=== PATIENT | female | born 1985 | race Caucasian/White ===

== ENCOUNTER 2023-07-15 21:24 | Emergency (ER) | payer OTHER ==
[~2023-07-15] VITALS: Ht 175.3 cm; Wt 63.5 kg
[~2023-07-15 21:24] MED LIST: ALBU90OI INH; ALBU90OI61 INH; AMOCLA875 PO; AMOX500 PO; AMOX875 PO; AMPDEX10 PO; ARIP10 PO; BACL10 PO; BUSP10 PO; CITA20; CITA20 PO; CLON1 PO; Cleocin HCl150 MG PO; Cleocin HCl300 MG PO; DOXY100T53 PO; FAMO20 PO; FLUC150A PO; Flagyl500 MG PO; GABA300; HYDACE5 PO; IBUP600 PO; IBUP800 PO; KETO10 PO; LEVFLO500 PO; LORA.5 PO; MEDR150I; METR500 PO; MULVITMINE PO; Norco 5-325 Ta1 EACH PO; ONDA4ODT MM; Omeprazole20 M1; PENVK250 PO; PHENA100 PO; PHENA200 PO; POTCHL20ER PO; PREN-16 PO; PROM25 PO; Percocet 5-3251 EACH PO; REQUIP; ROPI1 PO; RXCYCL10 PO; RXHYDACE PO; Robaxin500 MG PO; SULTRIDS PO; Silver Sulfadi400 GM TP; TRAM50 PO; Tobrex5 ML RIGHTEYE; Woman's Laxative5 MG PO; Zofran Odt8 MG SL
[2023-07-15 21:48] VITALS: BP 121/60
[2023-07-15 21:52] LABS: Source, Urine Clean Catch
[2023-07-15 22:01] LABS: Appearance, Urine Hazy (Clear); Bilirubin, Urine Neg (Neg); Blood, Urine 2+ (Neg); Color, Urine Yellow (P-Yellow); Glucose Qualitative, Urine Neg (Neg); Ketones, Urine Neg (Neg); Leukocyte Esterase, Urine 1+ (Neg); Nitrite, Urine Pos (Neg); Protein, Urine 1+ (Neg); Specific Gravity, Urine 1.015 (1.003-1.022); Urobilinogen, Urine NORM (Normal)
[2023-07-15 22:11] LABS: Bacteria Many /hpf; Red Blood Cells, Urine 0-2 /hpf (0-2); Squamous Epithelial Cells Few /hpf (Few)
[2023-07-15] MEDS ORDERED: CEPH500 PO (22:17)
== END 2023-07-15 22:25 | disposition home or self-care (01) ==
LOC: ER 21:24
PROVIDERS: Physician Assistant
DX: N39.0 Urinary tract infection, site not specified (principal); F17.210 Nicotine dependence, cigarettes, uncomplicated; Z79.899 Other long term (current) drug therapy
CPT/HCPCS: 81001; 87077; 87086; 87186; 99283; A9270